=== PATIENT | male | born 1995 | race Caucasian/White ===

== ENCOUNTER 2017-06-14 10:32 | Inpatient (IN) | payer MEDICAID, OTHER ==
--- NOTE | 2017-06-14 12:19 | ED ---
Psych HPI - General Chief Complaint: Psychiatric Symptoms Stated Complaint: MENTAL HEALTH PETITION Time Seen by Provider: 06/14/17 10:32 Source: patient, police, RN notes reviewed Mode of arrival: ambulatory - History of Present Illness Initial Comments: This is a 22-year-old male with a history of heroin and crack cocaine abuse who is brought in by police and is under petition by a family member for depression and suicidal ideation. Patient is admitted to using both heroin and crack cocaine last use was yesterday. He is feeling desponded he has had thoughts of suicide and apparently he does have the means. He denies any alcohol use. MD Complaint: suicidal ideation, feels depressed - Related Data Home Medications Medication Instructions Recorded Confirmed No Known Home Medications [No 06/14/17 06/14/17 Known Home Medications] Allergies Allergy/AdvReac Type Severity Reaction Status Date / Time No Known Allergies Allergy Verified 06/14/17 10:40 Review of Systems ROS Statement: Those systems with pertinent positive or pertinent negative responses have been documented in the HPI. ROS Other: All systems not noted in ROS Statement are negative. Past Medical History Past Medical History: No Reported History History of Any Multi-Drug Resistant Organisms: None Reported Past Surgical History: No Surgical Hx Reported Past Psychological History: No Psychological Hx Reported Smoking Status: Current some day smoker Past Alcohol Use History: Rare Past Drug Use History: Cocaine, Heroin General Exam - General Exam Comments Initial Comments: This is a well-developed well-nourished awake alert oriented 3 male Limitations: no limitations General appearance: alert, in no apparent distress Head exam: Present: atraumatic, normocephalic, normal inspection Eye exam: Present: normal appearance, PERRL, EOMI. Absent: scleral icterus, conjunctival injection, periorbital swelling ENT exam: Present: normal exam, mucous membranes moist Neck exam: Present: normal inspection. Absent: tenderness, meningismus, lymphadenopathy Respiratory exam: Present: normal lung sounds bilaterally. Absent: respiratory distress, wheezes, rales, rhonchi, stridor Cardiovascular Exam: Present: regular rate, normal rhythm, normal heart sounds. Absent: systolic murmur, diastolic murmur, rubs, gallop, clicks GI/Abdominal exam: Present: normal bowel sounds. Absent: distended, tenderness , guarding, rebound, rigid Extremities exam: Present: normal inspection, full ROM, normal capillary refill. Absent: tenderness, pedal edema, joint swelling, calf tenderness Back exam: Present: normal inspection, full ROM Neurological exam: Present: alert, oriented X3, CN II-XII intact Psychiatric exam: Present: depressed, suicidal ideation Skin exam: Present: warm, dry, intact, normal color. Absent: rash Course Vital Signs 06/14/17 10:34 Temperature 97.7 F Pulse Rate 65 Respiratory 15 Rate Blood Pressure 130/82 O2 Sat by Pulse 99 Oximetry - Reevaluation(s) Reevaluation #1: 06/14/17 12:18 I did review the petition I did fill out a clinical certification the patient was evaluated by the psychiatric service and will be admitted for inpatient treatment. Medical Decision Making - Lab Data Lab Results 06/14/17 Range/Units 10:57 Urine Opiates Screen Detected H (NotDetected) Ur Oxycodone Screen Not Detected (NotDetected) Urine Methadone Screen Not Detected (NotDetected) Ur Propoxyphene Screen Not Detected (NotDetected) Ur Barbiturates Screen Not Detected (NotDetected) U Tricyclic Antidepress Not Detected (NotDetected) Ur Phencyclidine Scrn Not Detected (NotDetected) Ur Amphetamines Screen Not Detected (NotDetected) U Methamphetamines Scrn Not Detected (NotDetected) U Benzodiazepines Scrn Detected H (NotDetected) Urine Cocaine Screen Detected H (NotDetected) U Marijuana (THC) Screen Not Detected (NotDetected) Disposition Clinical Impression: Depression, Suicidal ideation Disposition: TRANSFER TO PSYCH HOSP/UNIT Condition: Stable Referrals: Juanito Andrade MD [Primary Care Provider] - 1-2 days
[2017-06-14 14:06] VITALS: BMI 21.4
[2017-06-14] MEDS ORDERED: MAGNESIUM HYDROXIDE 2,400 MG/10 ML CUP PO PRN (14:11)
[2017-06-14] MEDS ORDERED: MAG HYDROX/AL HYDROX/SIMETH 30 ML CUP PO PRN (14:11)
[2017-06-14] MEDS ORDERED: ACETAMINOPHEN TAB 325 MG TAB PO PRN (14:11)
[2017-06-14] MEDS ORDERED: LORazepam 1 MG TAB PO PRN (14:11)
[2017-06-14] MEDS ORDERED: cloNIDine HCL 0.1 MG TAB PO PRN (14:17)
[2017-06-14] MEDS ORDERED: LOPERAMIDE 2 MG CAP PO PRN (14:23)
[2017-06-14] MEDS: ESCITALOPRAM 20 MG TAB PO SCH (18:18)
[2017-06-14] MEDS: OLANZapine 5 MG TAB PO SCH ×2 (18:18→19:51)
[2017-06-14] MEDS: cloNIDine HCL 0.1 MG TAB PO SCH (19:51)
[2017-06-14] MEDS: traZODone HCL 100 MG TAB PO SCH (21:50)
--- NOTE | 2017-06-15 08:15 | CONS ---
CONSULTATION DATE OF CONSULTATION: 06/14/17 REASON FOR CONSULTATION: Medical management requested by Dr. Douglas. CONSULTATION: This is a 22-year-old patient of Dr. Andrade who has been doing IV heroin for 2 years and also does crack, smokes it. Patient decided to stop heroin and is having withdrawal including manifesting itself as depression, anxiety, suicidal ideation. The patient does work at [employer]. Has not been sleeping well. The patient has been having nasal stuffiness, somewhat restless, feeling hot and cold, depressed. REVIEW OF SYSTEMS: CONSTITUTIONAL: None HEENT: Nasal stuffiness. RESPIRATORY: None. CARDIOVASCULAR: None. GASTROESOPHAGITIS: None. GENITOURINARY: None. MUSCULOSKELETAL: None. DERMATOLOGIC, HEMATOLOGIC, LYMPHATIC: None. PSYCHIATRY: Depression. NEUROLOGIC: NONE. PAST MEDICAL HISTORY: None. PAST SURGICAL HISTORY: None. SOCIAL HISTORY: Does IV heroin and cocaine. Lives with mother. Works at [employer]. FAMILY HISTORY: Reviewed; noncontributory to presentation. HOME MEDICATIONS: 1. Trazodone 100 mg q.h.s. 2. Lexapro 20 mg a day. ALLERGIES: None. EXAMINATION: Temperature 97.6, pulse 54, respirations 16, blood pressure 108/59, pulse ox 99% on room air. GENERAL APPEARANCE: Lying in bed, somewhat anxious appearing. EYES: Pupils equal. Oral cavity normal. NECK: JVD not raised. Mass not palpable. RESPIRATORY: Effort normal. LUNGS: Fair air entry. CARDIOVASCULAR: First and second sounds normal. No edema. ABDOMEN: Soft, nontender. Liver and spleen not palpable. LYMPHATIC: No lymph node palpable in neck or axillae. PSYCHIATRIC: Alert and oriented. Mood and affect slightly anxious. NEUROLOGICAL: Pupils equal. Cranial nerves grossly intact. Power and sensation are grossly intact. INVESTIGATIONS: Urine drug screen positive for opiates and benzodiazepines and cocaine. ASSESSMENT: 1. IV heroin dependence. 2. Cocaine use. 3. Depression, not otherwise specified, major with suicidal ideation. PLAN: The patient is currently on Catapres for withdrawal symptoms, other medications by Dr. Douglas. The patient advised against sing recreational drugs. He should follow with his family doctor upon discharge. Thank you, Dr. Douglas. MMODL / IJN: [id number] /
[2017-06-15 09:25] LABS: Basophils % (A) 1 %; CH 30.3; CHCM 33.6; Eosinophils # (A) 0.3 k/uL (0-0.7); Eosinophils % (A) 5 %; HDW 2.57; HGB 14.9 gm/dL (13.0-17.5); Luc # (Auto) 0.15; Luc % (Auto) 2; Lymphocytes # (A) 2.2 k/uL (1.0-4.8); Lymphocytes % (A) 34 %; MCH 31.3 pg (25.0-35.0); MCHC 34.6 g/dL (31.0-37.0); MCV 90.6 fL (80.0-100.0); Mean Platelet Volume 6.7; Monocytes # (A) 0.3 k/uL (0-1.0); Monocytes % (A) 5 %; Neutrophils # (A) 3.4 k/uL (1.3-7.7); Neutrophils % (A) 53 %; RBC 4.75 m/uL (4.30-5.90); RDW 12.1 % (11.5-15.5); WBC 6.3 k/uL (4.0-11.0); WBC (Perox) 6.47
[2017-06-15] MEDS: OLANZapine 5 MG TAB PO SCH ×3 (09:33→21:44)
[2017-06-15] MEDS: cloNIDine HCL 0.1 MG TAB PO SCH ×2 (09:34→21:43)
[2017-06-15] MEDS: ESCITALOPRAM 20 MG TAB PO SCH (09:34)
[2017-06-15 10:38] LABS: ALT 24 U/L (21-72); AST 23 U/L (17-59); Alkaline Phosphatase 54 U/L (38-126); Anion Gap 10 mmol/L; Blood Urea Nitrogen 12 mg/dL (9-20); Calcium 9.4 mg/dL (8.4-10.2); Carbon Dioxide 29 mmol/L (22-30); Chloride 102 mmol/L (98-107); Glucose 83 mg/dL (74-99); Non-African American GFR(MDRD) >60 (>60 ml/min/1.73 sqM); Potassium 4.6 mmol/L (3.5-5.1); Sodium 141 mmol/L (137-145); Total Bilirubin 0.3 mg/dL (0.2-1.3)
[2017-06-15] MEDS: traZODone HCL 100 MG TAB PO SCH (21:43)
[2017-06-16] MEDS: ESCITALOPRAM 20 MG TAB PO SCH (09:53)
[2017-06-16] MEDS: cloNIDine HCL 0.1 MG TAB PO SCH ×2 (09:53→21:12)
[2017-06-16] MEDS: OLANZapine 5 MG TAB PO SCH ×3 (09:53→21:12)
--- NOTE | 2017-06-16 11:19 | P.PN ---
Progress Note - Text Interval history: The patient is found in the hallway he follows me to an interview room. The patient was admitted over the weekend as he was petition by his mother out of concern that he had made suicidal statements. The patient admits that twice he made statements that he wanted to kill himself however he states it was while he was under the influence of drugs. He has struggle with mood and anxiety symptoms and feels that he is acutely anxious today. He has been using crack cocaine and heroin on a regular basis. He does indicate that he is experiencing some with drawl symptoms from the heroin. Vital signs reviewed. He was previously on Lexapro which was continued Zyprexa 5 mg 3 times a day was added. He wonders if he is feeling lethargic due to the addition of Zyprexa. He reports that he recently attended rehab at [facility] in [place]. He was also on the Vivitrol after discharge. He slept most of the day yesterday he has been selectively attending some groups today. Mental status exam: The patient is a thin male appearing his stated age she is dressed in his own clothing. Eye contact is appropriate. He has spontaneous speech that is fluent area he indicates his mood is depressed and anxious. He does feel safe in the hospital. He admits to making recent statements that he was suicidal. No homicidal ideation is expressed no report of auditory or visual hallucinations or specific delusions. There is no overt evidence of psychosis. In terms of psychomotor activity he is hyperactive he frequently moves while seated in the chair. He demonstrates no verbal or physical aggressiveness. Insight and judgment limited. Plan:. The patient will continue on his current medications. We discussed potential eliminating the Zyprexa if it's providing no benefit and making him feel tired. We will give this further consideration. He is encouraged to consider attending inpatient chemical dependency treatment again. We will monitor him for safety he is encouraged to participate in the milieu.
--- NOTE | 2017-06-16 13:22 | PN ---
PROGRESS NOTE DATE OF SERVICE: 06/15/2017 INTERVAL HISTORY: The patient has been doing fair. He had a quiet evening last night. He slept fairly well. Today he has been up and about. He tends to keep to himself. He does not interact too much with others. He has attended some groups though not others. He tends to be quiet and does not say too much. He continues to report feeling depressed. He says anxiety issues that he has been having are a little less. He was unclear about whether he continues to have thoughts of suicide or self harm. When I talked about the treatment process which would include a likely family meeting he was not opposed to that. He did not really identify any clear thoughts about what he would hope to accomplish in treatment or what followup treatment he would feel motivated towards. He has not had change in his general health. He tolerates his psychotropic medications. MENTAL STATUS: Patient gave fair eye contact. Psychomotor activity was slowed. He had a somewhat lethargic manner. His affect was flat. His mood reserved. He seemed somewhat distressed. There was no indication of thought disorder. ASSESSMENT: I will continue the current diagnosis and treatment plan. I will continue psychotropic medications the same. He has not shown significant withdrawal signs. His vital signs remain stable. Laboratory data including CBC and comprehensive metabolic profile are unremarkable. TSH is 0.6. Urinalysis was positive for opioids, benzodiazepines and cocaine. We will look at setting up a family meeting early in the week. We will continue to focus on stabilization and discharge planning. ALEXANDRA / ISAURO: [id number] /
--- NOTE | 2017-06-16 13:28 | HP ---
HISTORY AND PHYSICAL DATE OF SERVICE: 06/14/2017. IDENTIFYING DATA: The patient is a 22-year-old male. He resides in the family home with mother, 2 brothers and a sister. He was admitted through the emergency room for evaluation. CHIEF COMPLAINT: The patient was depressed. He was suicidal. He attempted to overdose on heroin with the intention of killing himself. He had not been eating, sleeping or taking care of it himself. INTERVAL HISTORY: The patient has not had a prior psychiatric hospitalization. He is not on any psychotropic medications. He has had significant substance use issues and has had problems with depression. Three or four months ago he was in [place] for substance abuse problems. He was there for 1 month. He left the [facility]. He went to [place] for about 2 months. He has a history of abuse of heroin, crack cocaine and occasional marijuana. He said he did fairly well after receiving Vivitrol. He said it helped for the month that he was on the medication though he did not get any follow up or Vivitrol. He started reusing drugs about 2 months ago. He has made efforts to stop and has been seen by [facility] and was prescribed an antidepressant though he stopped that. He also was on the trazodone. He said he got increasingly depressed over using substances. He lost a job at [employer] because of his substance abuse. That complicated his life situation and added to depression. He also had issues with driving on a suspended license. He denies problems with hallucinations or delusions. He was vague about whether he suffered any past trauma or has posttraumatic symptoms. He notes considerable anxiety though did not report panic. It is noted that his mother completed a petition for involuntary hospitalization. On the petition she indicated that he had overdosed on heroin and that he stated that he was disappointed that he did not . He has had thoughts of suicide in the past. He makes statements such as, "I do not feel right in my mind." He was noted by his mother to be a clean person who was health conscious but in the last few weeks he has not been showering, eating or sleeping consistently. A week ago he stated that he had not slept in 4 days. He kept repeating that he wanted to . He he had crying spells. There is a long history of depression, bipolar disorder, and suicidality in the family. His mother felt that there was trauma for the patient as a young child. His one grandfather was murdered and another grandfather had massive stroke whom he was very close to. He is admitted for further evaluation. SUBSTANCE USE HISTORY: As above. PAST MEDICAL HISTORY, REVIEW OF SYSTEMS AND PHYSICAL EXAM: As per Dr. Canas. FAMILY AND SOCIAL HISTORY: The patient lives with his mother and 2 younger brothers and 1 younger sister. MENTAL STATUS EXAM: The patient was casually dressed and cooperative. Eye contact was fair. At best psychomotor activity was slowed. Speech was monotone. He sat in a slumped posture. He answered questions with brief responses. He was not spontaneous or interactive. His affect was flat. His mood depressed. He was moderately distressed. There was no indication of thought disorder. On cognitive exam, he did not make effort to answer formal cognitive questions. Recent and remote memory appeared to be intact. Attention and concentration fair. Insight and judgment are uncertain. Fund of knowledge and intellectual level average. ASSESSMENT: This is a 22-year-old male who has mood disorder and substance use disorder. The two appear to go hand in hand. There is a significant family history of the like. Current stress issues are primarily related to relapse by the patient's report whether or not there are other psychosocial issues involved remains to be seen. Strengths include [place] intelligence. Weakness involves his lack of connection to the appropriate treatment services. DIAGNOSES: 1. Substance dependence, opioids and psychostimulants. 2. Major depression, chronic and recurrent, severe with acute exacerbation without psychotic features. RECOMMENDATIONS: Patient will be admitted for comprehensive medical, psychiatric and psychosocial evaluation. We will engage the patient in individual group therapeutic activities. I will continue the patient on Lexapro which presumably he has been on at some point in the recent past. I will start Zyprexa 5 mg 3 times a day. The aim of Zyprexa is to help reduce physiologic stress response as it relates to severe anxiety symptoms and substance withdrawal. In addition Zyprexa is indicated to help augment his antidepressant. He will also be started on clonidine 0.1 mg twice a day to help further manage withdrawal symptoms. We will focus on stabilization and discharge planning. MMODL / IJN: [id number] /
[2017-06-16] MEDS: traZODone HCL 100 MG TAB PO SCH (21:12)
[2017-06-17] MEDS: cloNIDine HCL 0.1 MG TAB PO SCH (09:28)
[2017-06-17] MEDS: OLANZapine 5 MG TAB PO SCH (09:28)
[2017-06-17] MEDS: ESCITALOPRAM 20 MG TAB PO SCH (09:28)
[2017-06-17] MEDS ORDERED: hydrOXYzine PAMOATE 25 MG CAP PO PRN (11:17)
--- NOTE | 2017-06-17 11:23 | P.PN ---
Progress Note - Text Interval history: The patient is found in the hallway he follows me to an interview room. He inquires as to when he can be discharged. We spent several minutes discussing the events precipitating this admission. We discussed the Lexapro. He states he had been on that as an outpatient before this admission but only complied with it for one week and then discontinued the Lexapro. He reported no side effects from that medication He feels that the Zyprexa is making him tired and there is no perceived benefit. We discussed restarting naltrexone as he did find the Vivitrol injections helpful in the past for reducing cravings. He feels he is having no significant opiate withdrawal symptoms at this time. He is attending groups as he feels it will expedite his discharge. He is willing to allow social work to speak with his mother and will sign and information release form. Mental status exam: The patient is a thin male appearing his stated age he is dressed in his own clothing he seated in the chair but frequently changes position and fidgets throughout the session. Eye contact is intermittent. He reports his mood is depressed at times. He feels safe in the hospital. He is trying to underreport symptoms to facilitate a discharge. He admits to having suicidal thoughts prior to this admission. He describes no homicidal ideation he endorses no auditory or visual hallucinations or specific delusions. He does not appear hypomanic or manic. Thought process for the most part is linear he demonstrates no tangential thinking lose associations or flight of ideas. He demonstrates no verbal or physical aggressiveness. Plan: The patient will continue on the 20 mg of Lexapro daily as he has not been on that for sufficient period of time to evaluate its efficacy.we will discontinue the Zyprexa and clonidine. Vistaril 25 mg up to 3 times a day will be ordered for anxiety if needed, we will restart naltrexone 50 mg daily to help with cravings for opiate use. Social work will make contact with the patient's mother and arrange a support meeting. We will continue to monitor the patient for safety and encourage his participation in the milieu.
[2017-06-17] MEDS: NALTREXONE HCL 50 MG TAB PO SCH (11:46)
[2017-06-17] MEDS: traZODone HCL 100 MG TAB PO SCH (21:41)
[2017-06-18 07:27] VITALS: RESP 16
[2017-06-18] MEDS: NALTREXONE HCL 50 MG TAB PO SCH (09:06)
[2017-06-18] MEDS: ESCITALOPRAM 20 MG TAB PO SCH (09:06)
--- NOTE | 2017-06-18 10:04 | P.PN ---
Progress Note - Text Interval history: The patient is found in group he follows me to an interview room. Social work notes were reviewed. The patient was initially refusing inpatient chemical dependency treatment but at the insistence of his mother he is now agreeable. He is scheduled to start at [facility] sometime next week. It is unclear if he is able to return to his mother's prior to starting rehab. This will need to be clarified. The patient is endorsing no suicidal thoughts. We discussed some short-term goals of his once he is done with rehab. He discussed wanting to gain employment. He has no questions or concerns regarding his medication. We reviewed his psychotropic medications. Mental status exam: The patient is a thin male he is dressed in shorts and a hooded sweatshirt. He has a visible tattoo on his right lower extremity. Eye contact is appropriate speech is fluent spontaneous nonpressured. He does fidget less while seated in his chair today. He reports his mood is stable he is reporting no hopelessness thinking or any suicidal or homicidal ideation intent or plan. He is endorsing no auditory or visual hallucinations or specific delusions. There is no overt evidence of psychosis. He does not present hypomanic or manic. There is no tangential thought process loose associations or flight of ideas. He demonstrates no verbal or physical aggressiveness. Insight and judgment grossly intact. Plan: The patient will continue on his current psychotropic medications. It appears that he is clinically stabilizing I anticipate discharging him tomorrow. Social work will continue the conversation with the patient's mother regarding his temporary placement prior to rehab. Vital signs reviewed. We will continue to monitor him for safety and encourage his full participation in the milieu.
[2017-06-18] MEDS: traZODone HCL 100 MG TAB PO SCH (21:40)
[2017-06-19 07:09] VITALS: BP 103/56; PULSE 53; TEMP 98.1
[2017-06-19] MEDS: ESCITALOPRAM 20 MG TAB PO SCH (08:55)
[2017-06-19] MEDS: NALTREXONE HCL 50 MG TAB PO SCH (08:55)
--- NOTE | 2017-06-19 09:31 | P.DS ---
Providers Date of admission: 06/14/17 12:39 Expected date of discharge: 06/19/17 Attending physician: Horacio Douglas Consults: 06/14/17 14:11 Consult Physician Routine Consulting Provider: Jesús Canas Consult Reason/Comments: H and P and Medical Management Do you want consulting provider notified?: Yes Primary care physician: Juanito Andrade - Discharge Diagnosis(es) (1) Major depressive disorder, recurrent Current Visit: Yes Status: Acute Priority: High (2) Opiate dependence Current Visit: Yes Status: Acute Priority: High (3) Cocaine use disorder, mild, abuse Current Visit: Yes Status: Acute Priority: Medium Hospital Course: Brief summary of admission note: This patient is a 22-year-old single male who was admitted to the mental health unit as he was petition by his mother. He was petition for expressing suicidal ideation. It was reported that he was feeling depressed and attempted to overdose on heroin. He reported poor appetite sleep and poor self-care. The patient was initially admitted by Dr. Ponce and subsequently I assume the patient's care. The patient admitted that he did have some feelings of depression and suicidal thoughts while intoxicated but he states ulcers all once he is sober again. He has been struggling with maintaining sobriety from opiates and cocaine as well as marijuana. For full details please refer to the psychiatric evaluation note. Summary of hospital course: The patient was admitted to the mental health unit on a petition however he did sign in voluntarily. He was continued on Lexapro trazodone was used to help with sleep. During the course of the admission we discussed restarting naltrexone as he had found this medication helpful for cravings previously. The patient reported a quick resolution of any suicidal ideation over the last several days he's stated having no suicidal thoughts. He initially did not want to attend inpatient chemical dependency treatment although we strongly recommended it. His mother was able to convince him to attend and he is scheduled to start inpatient chemical dependency treatment again. The patient selectively attended groups he demonstrated no agitated behavior. He has met with social work several times. He has been seen by internal medicine for routine history and physical exam. Mental status exam: The patient is an alert than male appearing his stated age. Eye contact is appropriate. Hygiene grooming adequate. Speech is fluent spontaneous nonpressured. He reports his mood is "fine". He endorses no suicidal or homicidal ideation intent or plan. He endorses no auditory or visual hallucinations or any specific delusions. There is no overt evidence of psychosis. He demonstrates no circumstantial thinking tangential thinking loose associations or flight of ideas. He does not appear hypomanic or manic. He is oriented to person place and date. Insight and judgment improving. He demonstrates no verbal or physical aggressiveness. Affect is appropriately expresses and appears euthymic. He demonstrates future oriented thinking. He verbalizes a willingness to return home until placement at inpatient chemical dependency treatment. He verbalizes goals of obtaining employment once he is done completing inpatient chemical dependency treatment again. Impressions 1. Major depressive disorder recurrent severe without psychosis, opiate use disorder, cocaine use disorder, rule out marijuana use disorder 2. Unemployment, psychosocial dysfunction caused by substance use Plan: The patient will be discharged from mental health unit today to return home. He is scheduled to participate in inpatient chemical dependency treatment. Social work will arrange any necessary outpatient follow-up. He will continue on Lexapro 20 mg daily, trazodone 100 mg at bedtime, naltrexone 50 mg daily. We discussed the safety risk of re-using substances. He is encouraged to consider AA or NA meetings until rehab placement. He is verbalizing no suicidal or homicidal thoughts there is no evidence of psychosis and he is able to participate in his own activities of daily living. He does not require continued hospitalization and is appropriate for transition to outpatient care. He is reminded to return to the hospital with any acute safety concerns. Patient Condition at Discharge: Stable Plan - Discharge Summary New Discharge Prescriptions: New Naltrexone HCl [Revia] 50 mg PO DAILY #30 tab Continue Escitalopram [Lexapro] 20 mg PO DAILY #30 traZODone HCL 100 mg PO HS #30 Discharge Medication List Escitalopram [Lexapro] 20 mg PO DAILY #30 06/19/17 [Rx] Naltrexone HCl [Revia] 50 mg PO DAILY #30 tab 06/19/17 [Rx] traZODone HCL 100 mg PO HS #30 06/19/17 [Rx] Follow up Appointment(s)/Referral(s): Intake, intake [Other] - 06/23/17 12:00 pm (Intake for inpatient rehab 06/23/17 at 12:00 pm) Juanito Andrade MD [Primary Care Provider] - 1-2 days
== END 2017-06-19 17:40 | disposition home or self-care (01) | DRG 885 ==
LOC: EC 10:32 → 3MHU 12:39
PROVIDERS: ADMIT Psychiatry & Neurology Psychiatry; ATTEND Psychiatry & Neurology Psychiatry
DX: F33.2 Major depressive disorder, recurrent severe without psychotic features (principal); R45.851 Suicidal ideations; F11.23 Opioid dependence with withdrawal; F14.10 Cocaine abuse, uncomplicated; F41.9 Anxiety disorder, unspecified; Z79.899 Other long term (current) drug therapy; Z81.8 Family history of other mental and behavioral disorders; Z82.3 Family history of stroke; Z56.0 Unemployment, unspecified
CPT/HCPCS: 80053; 80306; 82075; 84443; 85025; 99285

== ENCOUNTER 2017-10-23 02:05 | Emergency (ER) | payer OTHER ==
--- NOTE | 2017-10-23 02:20 | ED ---
General Adult HPI - General Chief complaint: Overdose Stated complaint: overdose Time Seen by Provider: 10/23/17 02:13 Source: patient, EMS, RN notes reviewed Mode of arrival: EMS - History of Present Illness Initial comments: Patient is a 22-year-old male who presents emergency room today by EMS, with a chief complaint of an accidental overdose. Patient does admit that he used heroin approximately 45 minutes ago. He states he snorted. He states that he was with a friend who apparently called 911. States was given Narcan. EMS states that this didn't work immediately. Patient denies any complaints currently at this time. Patient denies any recent fever, chills, shortness of breath, chest pain, back pain, abdominal pain, nausea or vomiting, numbness or tingling, dysuria or hematuria, constipation or diarrhea, headaches or visual changes, or any other complaints. - Related Data Previous Rx's Medication Instructions Recorded Escitalopram [Lexapro] 20 mg PO DAILY #30 06/19/17 Naltrexone HCl [Revia] 50 mg PO DAILY #30 tab 06/19/17 traZODone HCL 100 mg PO HS #30 06/19/17 Allergies Allergy/AdvReac Type Severity Reaction Status Date / Time No Known Allergies Allergy Verified 06/14/17 10:40 Review of Systems ROS Statement: Those systems with pertinent positive or pertinent negative responses have been documented in the HPI. ROS Other: All systems not noted in ROS Statement are negative. Past Medical History Past Medical History: No Reported History History of Any Multi-Drug Resistant Organisms: None Reported Past Surgical History: No Surgical Hx Reported Past Anesthesia/Blood Transfusion Reactions: No Reported Reaction Past Psychological History: No Psychological Hx Reported Smoking Status: Current some day smoker Past Alcohol Use History: Rare Past Drug Use History: Cocaine, Heroin General Exam - General Exam Comments Initial Comments: General: The patient is awake and alert, in no distress, and does not appear acutely ill. Eye: Pupils are equal, round and reactive to light, extra-ocular movements are intact. No nystagmus. There is normal conjunctiva bilaterally. No signs of icterus. Ears, nose, mouth and throat: There are moist mucous membranes and no oral lesions. Neck: The neck is supple, there is no tenderness or JVD. Cardiovascular: There is a regular rate and rhythm. No murmur, rub or gallop is appreciated. Respiratory: Lungs are clear to auscultation, respirations are non-labored, breath sounds are equal. No wheezes, stridor, rales, or rhonchi. Musculoskeletal: Normal ROM, no tenderness. Strength 5/5. Sensation intact. Pulses equal bilaterally 2+. Neurological: A&O x 3. CN II-XII intact, There are no obvious motor or sensory deficits. Coordination appears grossly intact. Speech is normal. Skin: Skin is warm and dry and no rashes or lesions are noted. Psychiatric: Cooperative, appropriate mood & affect, normal judgment. Course Vital Signs 10/23/17 02:07 Temperature 100.0 F H Pulse Rate 110 H Respiratory 16 Rate Blood Pressure 157/87 O2 Sat by Pulse 98 Oximetry Medical Decision Making - Medical Decision Making Patient has been observed here in the emergency room for over the last hours had no relapse. Patient doing well has no complaints at this time. Will be discharged home. Patient will be having a friend or family member to come pick him up. Disposition Clinical Impression: Accidental overdose of heroin Disposition: HOME SELF-CARE Condition: Stable Instructions: Narcotic Abuse (ED) Referrals: Juanito Andrade MD [Primary Care Provider] - 1-2 days Time of Disposition: 03:20
[2017-10-23 03:44] VITALS: BP 143/75; PULSE 107; RESP 17; TEMP 97.9
== END 2017-10-23 03:48 | disposition home or self-care (01) ==
LOC: EC 02:05
DX: T40.1X1A Poisoning by heroin, accidental (unintentional), initial encounter (principal); F17.200 Nicotine dependence, unspecified, uncomplicated
CPT/HCPCS: 99284

== ENCOUNTER 2018-12-26 19:43 | Emergency (ER) | payer OTHER ==
[2018-12-26 19:57] VITALS: RESP 16
[2018-12-26 20:47] LABS: Basophils % (A) 0 %; Eosinophils # (A) 0.2 k/uL (0-0.7); Eosinophils % (A) 3 %; HGB 14.5 gm/dL (13.0-17.5); Lymphocytes # (A) 3.6 k/uL (1.0-4.8); Lymphocytes % (A) 43 %; MCHC 32.9 g/dL (31.0-37.0); MCV 88.2 fL (80.0-100.0); Mean Platelet Volume 6.2; Monocytes # (A) 0.4 k/uL (0-1.0); Monocytes % (A) 5 %; Neutrophils # (A) 3.9 k/uL (1.3-7.7); Neutrophils % (A) 47 %; Platelet Count 322 k/uL (150-450); RBC 4.99 m/uL (4.30-5.90); RDW 12.1 % (11.5-15.5); WBC 8.4 k/uL (3.8-10.6)
[2018-12-26 20:56] LABS: ALT 37 U/L (21-72); AST 36 U/L (17-59); Albumin 4.4 g/dL (3.5-5.0); Alkaline Phosphatase 75 U/L (38-126); Anion Gap 10 mmol/L; Blood Urea Nitrogen 20 mg/dL (9-20); Calcium 9.7 mg/dL (8.4-10.2); Carbon Dioxide 30 mmol/L (22-30); Chloride 100 mmol/L (98-107); Glucose 108 mg/dL (74-99); Magnesium 1.7 mg/dL (1.6-2.3); Sodium 140 mmol/L (137-145); Total Bilirubin 0.2 mg/dL (0.2-1.3); Total Protein 7.3 g/dL (6.3-8.2)
[2018-12-26 21:01] LABS: INR 0.9 (<1.2); Partial Thromboplastin Time 27.3 sec (22.0-30.0); Prothrombin Time 9.7 sec (9.0-12.0)
--- NOTE | 2018-12-26 21:11 | XR ---
EXAMINATION TYPE: XR chest 2V DATE OF EXAM: 12/26/2018 COMPARISON: None HISTORY: Chest pain TECHNIQUE: Frontal and lateral views of the chest are obtained. FINDINGS: Heart and mediastinum are normal. Lungs are clear. Diaphragm is normal. Bony thorax appear s normal. IMPRESSION: Normal chest.
--- NOTE | 2018-12-26 21:24 | ED ---
Chest Pain HPI - General Chief Complaint: Chest Pain Stated Complaint: Chest pain Time Seen by Provider: 12/26/18 20:02 Source: patient Mode of arrival: ambulatory Limitations: no limitations - History of Present Illness Initial Comments: 23-year-old male patient with a history of IV drug abuse with heroin and cocaine, presents to the emergency department today for evaluation of left-sided chest pain. Patient describes the pain as a squeezing type pain. Denies any shortness of breath or radiation of the pain to his back. Denies any nausea, vomiting, dizziness, weakness, numbness, or tingling to his extremities. Patient states he has been told in the past he has a heart murmur. States that his last doctor's visit his blood pressure was elevated. Patient states the pain comes on at rest and results when he performs physical activity. Patient states it has been 2 weeks since he is used heroin. He did start Suboxone 2 weeks ago. States he has been here since he used cocaine. He denies any current street drug use. Patient denies any recent rash, fever, chills, cough, abdominal pain, nausea, vomiting, diarrhea, constipation, back pain, hematuria, dysuria, urinary urgency, urinary frequency, headache, visual changes, or any other complaints. - Related Data Previous Rx's Medication Instructions Recorded Escitalopram [Lexapro] 20 mg PO DAILY #30 06/19/17 Naltrexone HCl [Revia] 50 mg PO DAILY #30 tab 06/19/17 traZODone HCL 100 mg PO HS #30 06/19/17 Allergies Allergy/AdvReac Type Severity Reaction Status Date / Time No Known Allergies Allergy Verified 06/14/17 10:40 Review of Systems ROS Statement: Those systems with pertinent positive or pertinent negative responses have been documented in the HPI. ROS Other: All systems not noted in ROS Statement are negative. EKG Findings - EKG Comments: EKG Findings:: EKG obtained at 2014 shows normal sinus rhythm with a ventricular rate of 68, W[place] interval 156, QRS duration 96, QT 384, QTC 408. No evidence of ST elevation or depression. Past Medical History Past Medical History: No Reported History History of Any Multi-Drug Resistant Organisms: None Reported Past Surgical History: No Surgical Hx Reported Past Anesthesia/Blood Transfusion Reactions: No Reported Reaction Past Psychological History: No Psychological Hx Reported Smoking Status: Current some day smoker Past Alcohol Use History: Rare Past Drug Use History: Cocaine, Heroin General Exam Limitations: no limitations General appearance: alert, in no apparent distress, other (Physical well- developed, well-nourished adult male patient in no acute distress. Vital signs upon presentation are temperature 98.3F, pulse 67, respiration 16, blood pressure 142/87, pulse ox 96% on room air.) Eye exam: Present: normal appearance, PERRL, EOMI. Absent: scleral icterus, conjunctival injection, periorbital swelling ENT exam: Present: normal exam, normal oropharynx, mucous membranes moist Respiratory exam: Present: normal lung sounds bilaterally. Absent: respiratory distress, wheezes, rales, rhonchi, stridor Cardiovascular Exam: Present: regular rate, normal rhythm, normal heart sounds. Absent: systolic murmur, diastolic murmur, rubs, gallop, clicks GI/Abdominal exam: Present: soft, normal bowel sounds. Absent: distended, tenderness, guarding, rebound, rigid Neurological exam: Present: alert, oriented X3, CN II-XII intact Psychiatric exam: Present: normal affect, normal mood Skin exam: Present: warm, dry, intact, normal color. Absent: rash Course Vital Signs 12/26/18 12/26/18 19:54 22:16 Temperature 98.3 F 97.6 F Pulse Rate 67 64 Respiratory 16 16 Rate Blood Pressure 142/87 129/69 O2 Sat by Pulse 96 100 Oximetry Chest Pain [facility]:Two-view x-ray of the chest is obtained. Report was reviewed in its entirety. Impression by Dr. Saldivar shows normal chest. MDM: 23-year-old male patient with past medical history significant for heroin and cocaine use presents to the emergency department today for evaluation of left-sided chest pain. Patient denied any fevers or chills. Physical examination is unremarkable. Abdomen soft and nontender. Lungs are clear and equal to auscultation. Pain is not reproducible palpation. Labs reviewed and are unremarkable. Two-view x-ray of the chest is obtained and showed no acute cardiopulmonary process. Patient symptoms did resolve with activity and present at rest. He did start a new medication Suboxone 2 weeks ago. We did discuss possibility of anxiety versus withdrawal as a cause for his symptoms. However he does have history of murmurs that he will be instructed to follow-up with his primary care physician for reevaluation, possible referral to cardiology, and echocardiogram. Return parameters were discussed in detail. He verbalizes understanding and agrees with this plan. Disposition Clinical Impression: Chest pain Disposition: HOME SELF-CARE Condition: Good Instructions (If sedation given, give patient instructions): Chest Pain (ED) Additional Instructions: Follow up with a primary care physician for recheck as soon as possible. Discuss referral to cardiology and echocardiogram. Return to the emergency department for any new, worsening, or concerning symptoms. Is patient prescribed a controlled substance at d/c from ED?: No Referrals: Yamile Lam MD [REFERRING] - 1-2 days Blake Summers MD [STAFF PHYSICIAN] - 1-2 days Time of Disposition: 22:03
[2018-12-26 22:17] VITALS: BP 129/69; PULSE 64; TEMP 97.6
== END 2018-12-26 22:19 | disposition home or self-care (01) ==
LOC: EC 19:43
DX: R07.9 Chest pain, unspecified (principal); R01.1 Cardiac murmur, unspecified; F17.200 Nicotine dependence, unspecified, uncomplicated
CPT/HCPCS: 36415; 71046; 80053; 83735; 84484; 85025; 85610; 85730; 93005; 99285